=== PATIENT | male | born 1975 | race Caucasian/White ===

== ENCOUNTER → 2023-02-13 | Outpatient (CLI) | payer OTHER ==
[~2023-02-13] MED LIST: ISOVUE-300 61% 100ML VIAL As Ordered ONE; LIDOCAINE 1% MDV 20ML VIAL As Ordered ONE; PROHANCE 279.3MG/ML 5ML VIAL As Ordered ONE
== END ==
LOC: M RAD 06:32
PROVIDERS: ATTEND Physician Assistant Surgical
DX: M75.01 Adhesive capsulitis of right shoulder (principal); M24.111 Other articular cartilage disorders, right shoulder; M25.811 Other specified joint disorders, right shoulder
CPT/HCPCS: 23350; 73223; 77002; A9576; Q9967

== ENCOUNTER → 2023-09-19 | Outpatient (REF) | LOC: M PLAIMG 12:16 | PROVIDERS: ATTEND Nurse Practitioner Family | DX: R05.3 Chronic cough (principal); R94.2 Abnormal results of pulmonary function studies ==

== ENCOUNTER → 2024-02-06 | Outpatient (CLI) | payer OTHER | LOC: M RAD 10:18 | PROVIDERS: ATTEND Physician Assistant Medical | DX: M25.541 Pain in joints of right hand (principal) ==